=== PATIENT | male | born 1955 | race Caucasian/White ===

== ENCOUNTER 2018-11-23 19:27 | Emergency (ER) | payer BC ==
[~2018-11-23] VITALS: Ht 193 cm; Wt 81.9 kg
[2018-11-23 19:31] VITALS: BP 115/78
[2018-11-23] MEDS ORDERED: LEVOTHYROXINE PO (20:06)
[2018-11-23] MEDS ORDERED: AZITHROMYCIN 500 MG TABLET ONE (20:34)
--- NOTE | 2018-11-23 20:50 | NUR ---
PT GIVEN INSTRUCTIONS AND SCRIPT. PT EDUCATED REGARDING DC MEDICATION WHICH IS ZITHROMAX. PT AOX4. RESPS EVEN AND UNLABORED. PT AMB TO DC WITH STEADY GAIT.
[2018-11-23] MEDS ORDERED: AZITHROMYCIN 500 MG TABLET PO ONE (21:00)
== END 2018-11-23 20:53 | disposition home or self-care (01) ==
LOC: ED 20:15
DX: J15.9 Unspecified bacterial pneumonia (principal)
CPT/HCPCS: 71046; 99283